=== PATIENT | female | born 1975 | race Two or more races ===

== ENCOUNTER 2017-09-14 23:14 | Emergency (ER) | payer MEDICAID ==
[~2017-09-14] VITALS: Ht 157.5 cm; Wt 81.6 kg
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
[2017-09-15] MEDS ORDERED: IBUPROFEN 600 MG TABLET PO ONE ×3 (01:00→02:05)
[2017-09-15] MEDS ORDERED: TDAP [DIPH/PERTUSSIS/TET] 0.5 ML VIAL IM ONE ×3 (01:00→02:05)
--- NOTE | 2017-09-15 02:14 | NUR ---
Patient discharged to home in stable condition. Written and verbal after care instructions given. Patient verbalizes understanding of instruction. ambulatory with a steady gait
[2017-09-15 02:22] VITALS: BP 128/79
== END 2017-09-15 02:14 | disposition home or self-care (01) ==
LOC: ER 23:21
DX: S91.012A Laceration without foreign body, left ankle, initial encounter (principal); Z60.2 Problems related to living alone; W22.8XXA Striking against or struck by other objects, initial encounter; Y93.01 Activity, walking, marching and hiking; Y92.89 Other specified places as the place of occurrence of the external cause; Y99.8 Other external cause status
CPT/HCPCS: 73610; 90471; 90715; 99284; A4606; Z7610